=== PATIENT | female | born 1960 | race Caucasian/White ===

== ENCOUNTER 2020-11-04 12:48 | Emergency (ER) | payer OTHER, MEDICAID, SELFPAY ==
[2020-11-04 12:59] VITALS: BP 132/94; PULSE 88; RESP 14; TEMP 36.3; O2SAT 99
[2020-11-04 13:28] LABS: COVID19 -Nasal RAPID Negative (Negative)
== END 2020-11-04 14:46 | disposition left against medical advice (07) ==
PROVIDERS: Emergency Provider Emergency Medicine
DX: Z20.822 Contact with and (suspected) exposure to COVID-19 (principal)
CPT/HCPCS: 87635; 99281; C9803

== ENCOUNTER 2021-10-27 10:06 | Emergency (ER) | payer OTHER, MEDICAID, SELFPAY ==
[2021-10-27 10:19] VITALS: BP 134/60; PULSE 85; RESP 26; TEMP 36.4; O2SAT 99; BMI 25.7
--- NOTE | 2021-10-27 10:23 | DI.RAD.S_ITS ---
PROCEDURE: XR FOOT RT MIN 3V INDICATIONS: foot pain TECHNIQUE: 3 views of the foot were acquired. COMPARISON: None. FINDINGS: Bones: There is a mildly displaced fracture of the right proximal 5th metatarsal shaft. There is a potential additional nondisplaced fracture of the proximal 4th metatarsal shaft. No suspicious lytic or blastic lesions are seen. Age-appropriate bony degenerative changes are seen. Soft tissues: Mild soft tissue swelling is seen. IMPRESSION: Mildly displaced fracture of the proximal 5th metatarsal shaft, with a potential additional nondisplaced fracture of the 4th proximal metatarsal shaft. Dictated by: Shubham Berg M.D. on 10/27/2021 at 9:36 Approved by: Shubham Berg M.D. on 10/27/2021 at 9:37
--- NOTE | 2021-10-27 10:57 | ED.LOWEXIN ---
HPI - Extremity Injury (Lower) General Chief Complaint: Extremity Injury, Lower Stated Complaint: poss broken rt foot Time Seen by Provider: 10/27/21 10:50 Source: patient Mode of arrival: Ambulatory History of Present Illness HPI Narrative: Patient is a 61-year-old female who presents with right foot pain. She said she was helping a neighbor yesterday when of being landed on her foot. She has been unable to ambulate. She has significant contusion. No other injury. Related Data Previous Rx's Medication Instructions Recorded hydrocodone 5 mg-acetaminophen 325 1 tab PO Q6H PRN pain #10 tabs 10/27/21 mg tablet Allergies Allergy/AdvReac Type Severity Reaction Status Date / Time No Known Drug Allergies Allergy Verified 11/04/20 13:03 Review of Systems Review of Systems Narrative: GENERAL: Denies chills,fever HEENT: Denies throat pain RESPIRATORY: Denies dyspnea, cough, wheezing CARDIOVASCULAR: Denies chest pain, palpitations GASTROINTESTINAL: Denies nausea, vomiting MUSCULOSKELETAL: See HPI SKIN: No rash, no laceration, no pruritus NEUROLOGIC: Denies weakness, dizziness, headache, numbness 8 point review of systems is negative except for those stated above and HPI Patient History Social History Smoking Status: Current every day smoker Smoking Status: Current every day smoker tobacco type: cigarettes alcohol intake frequency: holidays/special occasions only Substance Use Type: does not use Exam Initial Vital Signs Initial Vital Signs: Vital Signs Temperature 97.5 F L 10/27/21 10:19 Pulse Rate 85 10/27/21 10:19 Respiratory Rate 26 H 10/27/21 10:19 Blood Pressure 134/60 10/27/21 10:19 Pulse Oximetry 99 10/27/21 10:19 Oxygen Delivery Method 10/27/21 10:19 GENERAL: Well-appearing, well-nourished and in no acute distress. CARDIOVASCULAR: peripheral pulses in tact, cap refill <2 sec RESPIRATORY: No respiratory distress, speaks in full sentences without difficulty EXTREMITIES: Normal range of motion, no clubbing or edema. Neurovascularly intact Right foot contusion laterally distal radial pulse intact. Tender 5th metatarsal. Ankle intact no swelling NEUROLOGICAL: Cranial nerves II through XII grossly intact. Normal gait and speech. SKIN: Warm, dry, no petechiae, no rashes or lesions. Course Orders Ordered: ED Orders 10/27/21 10:23 XR foot RT min 3V Stat Discontinued Medications Hydrocodone Bitart/Acetaminophen (Hydrocodone/Acet 5/325 Tablet) 1 tab PO NOW ONE Stop: 10/27/21 11:05 Last Admin: 10/27/21 11:14 Dose: 1 tab Documented By: RICHARD Diphtheria/Tetanus/Acell Pertussis (Tet,Diph,Pertuss(Acell),Vac/Pf 0.5 Ml Syringe) 0.5 ml IM .ONCE ONE Stop: 10/27/21 11:05 Last Admin: 10/27/21 11:14 Dose: 0.5 ml Documented By: RICHARD Vital Signs Vital signs: Vital Signs - 8 hr 10/27/21 11:38 Pulse Rate 85 Respiratory Rate 20 Blood Pressure 128/69 Pulse Oximetry 100 Oxygen Delivery Method Room Air MDM - Extremity Injury (Lower) Imaging Data Extremity x-ray #1: Radiologist's Impression: XRay Report Signed Patient: Elise Ybarra MR#: [id number] : 1960 Acct:[id number] Age/Sex: 61 / F Date of Service: 10/27/21 Loc: ED Accession Number: [id number] ?? Procedure: XR foot RT min 3V Ordering Provider: Saranya Maher D.O. PROCEDURE:? XR FOOT RT MIN 3V ? INDICATIONS:? foot pain ? TECHNIQUE:? 3 views of the foot were acquired.? ? COMPARISON:? None. ? FINDINGS:? ? Bones:? There is a mildly displaced fracture of the right proximal 5th metatarsal shaft.? There is a potential additional nondisplaced fracture of the proximal 4th metatarsal shaft. ? No suspicious lytic or blastic lesions are seen.? Age-appropriate bony degenerative changes are seen.? ? Soft tissues:? Mild soft tissue swelling is seen. ? ? IMPRESSION:? Mildly displaced fracture of the proximal 5th metatarsal shaft, with a potential additional nondisplaced fracture of the 4th proximal metatarsal shaft. ? ? Dictated by: Shubham Berg M.D. on 10/27/2021 at 9:36 ? [facility] Narrative Medical decision making narrative: Patient is found to have 4th and 5th metatarsal fractures no evidence of do not fracture. She is given orthopedic shoe crutches and pain medication. Recommend outpatient follow-up. Discharge Plan Departure Patient Disposition: Home Clinical Impression: Metatarsal bone fracture Qualifiers: Encounter type: initial encounter Metatarsal bone: fifth Fracture alignment: displaced Laterality: right Instructions: DI for Foot Fracture Activity Restrictions/Additional Instructions: *You have been diagnosed with right 4th and 5th toe fracture *What to do: Where orthopedic shoe use crutches may weight bear as tolerated. You can elevate and ice. *Continue to take medications as directed [place] 1 tablet every 6 hours if needed for severe pain *Follow up with your primary care provider in 2-3 days or call [phone] Call orthopedics tomorrow to schedule follow-up appointment *Return to ER if you should have increasing pain swelling or any new, worsening or concerning symptoms CONTROLLED SUBSTANCE DISCHARGE (Narcotoic/benzodiazepine/Flexeril/Phenergan) 1. You have been prescribed narcotic medications, it does have acetaminophen/Tylenol/paracetamol in it, DO NOT TAKE MORE THAN 4,00mg in 24 hours of Tylenol. TRAMADOL DOES NOT CONTAIN TYLENOL 2. Please understand that we cannot provide further refills of narcotics, benzodiazepines or controlled substances through the ED and her pain management will need to be through your provider. 3. While on these medications you cannot drive or operate heavy machinery. 4. You cannot sign legal documents or perform any duties such as this. 5. As long as you're taking opiate pain medications he should also be taking a stool softener such as Colace, Dulcolax, MiraLAX or prune juice, to help avoid constipation. Prescriptions: New hydrocodone-acetaminophen 5-325 mg tablet 1 tab PO Q6H PRN (Reason: pain) Qty: 10 0RF Referrals: [facility] [Provider Group] Visit Report Forms: Patient Portal/API
[2021-10-27] MEDS: HYDROCODONE/ACET 5/325 TABLET 1 TAB PO (11:14)
[2021-10-27] MEDS: TET,DIPH,PERTUSS(ACELL),VAC/PF 0.5 ML SYRINGE IM (11:14)
[2021-10-27 11:38] VITALS: BP 128/69; PULSE 85; RESP 20; O2SAT 100
== END 2021-10-27 11:40 | disposition home or self-care (01) ==
PROVIDERS: Emergency Provider Emergency Medicine
DX: S92.351A Displaced fracture of fifth metatarsal bone, right foot, initial encounter for closed fracture (principal); W19.XXXA Unspecified fall, initial encounter; Z23 Encounter for immunization
CPT/HCPCS: 73630; 90471; 99283; 90715

== ENCOUNTER 2024-08-20 03:22 | Emergency (ER) | payer OTHER, SELFPAY ==
[2024-08-20 03:38] VITALS: BP 148/67; PULSE 88; RESP 18; TEMP 36.7; O2SAT 100; BMI 25.7
--- NOTE | 2024-08-20 03:56 | PC.NURSE ---
Pt states that she thinks she got exposed to something from her boyfriend.
--- NOTE | 2024-08-20 04:04 | ED.SKABFB ---
HPI - Skin/Abscess/Foreign Bdy General Chief complaint: Skin/Abscess/Foreign Body Stated complaint: Hives, possible bug bites. Time Seen by Provider: 08/20/24 03:46 Source: patient Mode of arrival: Ambulatory History of Present Illness HPI narrative: 64-year-old female previous presents for evaluation of potential bug bites for which she has been scratching at it but there is no bleeding, discharge, warmth or any history of MRSA. She has not done anything for it it has been ongoing for a few weeks now. She denies fever, chills, body aches, or any history of exposure to scabies. Other than what is stated 14 point review of system is negative Related Data Previous Rx's Medication Instructions Recorded hydrocodone 5 mg-acetaminophen 325 1 tab PO Q6H PRN pain #10 tabs 10/27/ mg tablet bacitracin 500 unit/gram topical 1 applic topical TID #14.2 grams 08/20/24 ointment Allergies Allergy/AdvReac Type Severity Reaction Status Date / Time No Known Drug Allergies Allergy Verified 01/21/23 08:40 Review of Systems Review of Systems ROS Unobtainable: All systems reviewed & are unremarkable except as noted in HPI and below Patient History tobacco type: cigarettes alcohol intake frequency: holidays/special occasions only Exam Narrative Exam Narrative: GENERAL: [64] year old patient appears stated age. Well-developed patient, in mild distress. HEAD: Atraumatic. Normocephalic. EYES: Pupils equal round and reactive. Extraocular motions intact. No scleral icterus. No injection or drainage. NECK: Trachea midline. Non tender EXTREMITIES: No edema or joint tenderness. BACK: Nontender without deformity or crepitance. No flank tenderness. NEURO: AOx3. SKIN: Few micro lesions on R forearm and leg open sores with minimal redness but no warmth, drainage, fluctuance or streaking seen Initial Vital Signs Initial Vital Signs: Vital Signs Temperature 98.0 F 08/20/24 03:38 Pulse Rate 88 08/20/24 03:38 Respiratory Rate 18 08/20/24 03:38 Blood Pressure 148/67 H 08/20/24 03:38 Pulse Oximetry 100 08/20/24 03:38 Oxygen Delivery Method Room Air 08/20/24 03:38 Course Vital Signs Vital signs: Vital Signs - 8 hr 08/20/24 03:38 Temperature 98.0 F Pulse Rate 88 Respiratory Rate 18 Blood Pressure 148/67 H Pulse Oximetry 100 Oxygen Delivery Method Room Air MDM - Skin/Abscess/Foreign Bdy MDM Narrative Medical decision making narrative: Vital signs reviewed, nursing triage note, medication list, previous ER visits, all previous ER imaging modalities reviewed. Patient given bacitracin ointment to apply to the affected area. Differential diagnosis cellulitis, MRSA, open wound, scabies, contact dermatitis. DC home on bacitracin ointment. Discharge Plan Departure Patient Disposition: Home Clinical Impression: Open wound Instructions: DI for Wound Infection Activity Restrictions/Additional Instructions: Return with new or worsening symptoms. Take your medicines as directed. Prescriptions: New bacitracin 500 unit/gram ointment 1 applic topical TID Qty: 14.2 0RF No Action hydrocodone-acetaminophen 5-325 mg tablet 1 tab PO Q6H PRN (Reason: pain) Qty: 10 0RF Referrals: Miscellaneous,Doctor, MD [Primary Care Provider] - Stand Alone Forms: Patient Portal/API/Survey
[2024-08-20] MEDS: BACITRACIN OINT 0.9 GM PCKT 1 APPLIC TOP (04:11)
[2024-08-20 04:17] VITALS: BP 118/82; PULSE 80; RESP 16; O2SAT 97
== END 2024-08-20 04:18 | disposition home or self-care (01) ==
PROVIDERS: Emergency Provider Family Medicine
DX: S51.802A Unspecified open wound of left forearm, initial encounter (principal)
CPT/HCPCS: 99282